=== PATIENT | female | born 1980 | race Caucasian/White ===

== ENCOUNTER 2018-11-10 16:32 | Inpatient (IN) ==
[2018-11-10] MEDS ORDERED: OXYTOCIN 30 UNITS/500 ML BAG IV PRN ×2 (16:49→20:05)
[2018-11-10] MEDS: LACTATED RINGER'S 1,000 ML IV PRN ×2 (17:00→18:00)
[2018-11-10 17:08] LABS: Hematocrit (blood only) 33.9 % (37-47); Hemoglobin 11.4 g/dL (12.0-16.0); Mean Corpuscular Volume 85.6 fL (80-100); Mean Platelet Volume 10.9 fL (7.4-10.4); Platelet Count 263 K/uL (130-400); RDW Coefficient of Variation 13.9 % (11.5-14.5); Red Blood Count 3.96 M/uL (4.2-5.4); White Blood Count 13.39 K/uL (4.8-10.8)
--- NOTE | 2018-11-10 17:08 | History & Physical Report ---
Date of Service November 10, 2018 Assessment & Plan (1) Term : 38yo at 39.5 weeks GA. Presents in active labor. 1. Fetus: cat 1 2: Labor: Active. Will AROM following epidural 3. Vitals: WNL 4. GBS Neg 5. Rh+ History of Present Illness Primary Care Provider: Danya Guzman 38yo at 39.5 weeks GA. Presents in active labor. No VB, LOF. Good FM. complicated by AMA. GBS-, RH+ Physical Exam Genitourinary: OB Exam Abdomen: + vertex and + regular contractions Manual OB Exam: + cervical dilation 6 cm, + cervical effacement 90% and + station 0 OB Exam Monitor Tracing: + category I Results & Data Vital Signs (Past 12 Hours) Vital Signs Temp Pulse Resp BP 11/10/18 16:41 76 124/74 11/10/18 16:40 37.0 C 24
[2018-11-10] MEDS ORDERED: ePHEDrine sulfate 50 MG/ML AMP ONE (17:11)
[2018-11-10] MEDS ORDERED: BUPIVACAINE 0.25% 30 ML VIAL ONE (17:11)
[2018-11-10] MEDS ORDERED: fentaNYL citrate 100 MCG/2 ML VIAL ONE (17:11)
[2018-11-10 17:12] LABS: Mean Corpuscular Hgb Conc 33.6 g/dL (32-36)
[2018-11-10] MEDS ORDERED: fentaNYL 2MCG/ML ROPIV 1.25MG/ML 100 ML BAG EPI ONE (17:12)
--- NOTE | 2018-11-10 17:38 | Anesthesiology Consultation ---
Date of Service November 10, 2018 Assessment & Plan (1) Term : Chart Review Chart Review: Acceptable Risk for Labor Epidural ASA ASA2 Proposed Anesthesia Anesthesia Type: CSE History NPO Last Intake of Fluids Comment: N/A Past Medical History Medical History No significant medical problems Physical Exam Vital Signs Last Vital Signs Temp 37.0 C 11/10/18 16:40 Pulse 76 11/10/18 16:41 Resp 24 11/10/18 16:40 BP 124/74 11/10/18 16:41 Testing Laboratory Results 11/10/18 16:58
[2018-11-10] MEDS ORDERED: HYDROCORTISONE ACETATE 25 MG SUPP PR PRN (20:05)
[2018-11-10] MEDS ORDERED: ACETAMINOPHEN 325 MG TAB PO PRN (20:05)
[2018-11-10] MEDS ORDERED: DIPHTHERIA/TETANUS/PERTUSSIS 0.5 ML SYR/VIAL IM ONE (20:05)
[2018-11-10] MEDS ORDERED: BISACODYL 10 MG SUPP PR PRN (20:05)
[2018-11-10] MEDS ORDERED: SUPERCREAM 0.870% 15 GM JAR EXT PRN (20:05)
[2018-11-10] MEDS ORDERED: BENZOCAINE 20% AER SPR 82.5 GM CAN EXT PRN (20:05)
--- NOTE | 2018-11-10 20:30 | Delivery Summary ---
DATE OF OPERATION: 11/10/2018 PROCEDURE: Normal spontaneous vaginal delivery. SURGEON: David Li MD PREOPERATIVE DIAGNOSES: 1. Single intrauterine at term. 2. Labor. POSTOPERATIVE DIAGNOSES: 1. Single intrauterine at term. 2. Labor, status post delivery. ESTIMATED BLOOD LOSS: 150 mL. DRAINS: None. FLUIDS: Continuous lactated ringer. URINE OUTPUT: Not measured. COMPLICATIONS: None. FINDINGS: Viable female infant with weight pending, Apgars of 8 and 9 at 1 and 5 minutes respectively. INDICATIONS: This patient is a 38-year-old G2, P1-0-0-1 admitted at 39 weeks 5 days gestational age in active labor. The patient received an epidural for anesthesia and underwent artificial rupture of membranes and then progressed to complete-complete +2 station, at which time she felt the urge to push. The patient pushed for over approximately 2 contractions to achieve delivery. DESCRIPTION OF PROCEDURE: The patient progressed to 10 cm dilated, 100% effaced, +2 station, pushed over intact perineum with epidural anesthesia and delivered a viable female infant with weight and Apgars as noted above. Head of the delivered in DOMONIQUE position. Nuchal cord x1 was noted which was easily reduced. Body and shoulders quickly followed. was delivered to maternal abdomen and was noted to be vigorous soon after delivery. One minute delayed cord clamping was initiated, after which the cord was double clamped and cut. Cord blood was then obtained. Attention was then turned to deliver the placenta, delivered intact, 3-vessel cord, gentle cord traction. On inspection of perineum, vagina and cervix, there were noted to be no lacerations. Sponge and instrument counts were correct at the completion of the case. Both mother and were stable in the immediate post-delivery. I attest to the content of the Intraoperative Record and any orders documented therein. Any exceptions are noted below. MTDD
[2018-11-11] MEDS: IBUPROFEN 600 MG TAB PO PRN ×2 (04:11→15:18)
[2018-11-11 06:57] LABS: Hemoglobin 10.5 g/dL (12.0-16.0)
--- NOTE | 2018-11-11 07:11 | Obstetrical Progress Note ---
Date of Service <Jaskaran Aceves MD - Last Filed: 11/11/18 07:11> November 11, 2018 Assessment & Plan <Jaskaran Aceves MD - Last Filed: 11/11/18 07:11> Day #:: 1 (38-year-old status post complicated by AMA -PPD#1 - GBS negative, Blood Type - Feels well today. Eating well, voiding well, ambulating well. - Pain well controlled with Motrin. - Routine post care - After discharge will have [address] Li.) Subjective <Jaskaran Aceves MD - Last Filed: 11/11/18 07:11> Ambulation: ambulating normally Voiding: no voiding problems Passing Gas:: No Diet Tolerance:: regular diet Lochia:: Large (heavier than a normal period but less than 1 pad an hour) Feeding Type:: breast feeding Current Pain Level(1-10): 0 (taking Motrin) Physical Exam <Jaskaran Aceves MD - Last Filed: 11/11/18 07:11> OB PE General: Alert, oriented. No acute distress. Cardiac: Regular rate and rhythm, no murmurs/rubs/gallops. Respiratory: Clear to auscultation anterior and posteriorly, no wheezes/rales/rhonchi. No increased work of breathing. Symmetrical chest rise. No respiratory distress. Abdomen: Soft, nontender, nondistended. Bowel sounds present. Uterus: Uterine fundus firm, palpable at the umbilicus. Lower Extremities: No lower extremity edema or swelling. No deep calf pain. Meghan's negative bilaterally. OB ROS Denies fever, chills, sweats Denies shortness of breath, difficulty breathing, chest pain, palpitations, chest pressure. Denies breast pain. Denies dysuria. Denies headache. Results & Data <Jaskaran Aceves MD - Last Filed: 11/11/18 07:11> Vital Signs (Past 12 Hours) Vital Signs Temp Pulse Pulse Pulse Resp BP BP 11/11/18 03:55 36.6 C 55 L 16 96/55 L 11/10/18 23:00 36.8 C 71 20 11/10/18 22:30 37.0 C 11/10/18 22:18 72 112/65 11/10/18 22:03 71 18 113/63 11/10/18 21:48 73 109/59 L 11/10/18 21:33 73 18 110/64 11/10/18 21:18 81 115/62 11/10/18 21:03 69 16 118/68 11/10/18 20:48 66 18 118/66 11/10/18 20:33 68 18 119/77 11/10/18 20:18 70 16 117/59 L 11/10/18 20:04 36.9 C 67 18 122/58 L 11/10/18 20:00 63 11/10/18 19:55 82 11/10/18 19:53 73 11/10/18 19:50 61 11/10/18 19:45 71 11/10/18 19:43 67 114/62 11/10/18 19:40 75 11/10/18 19:35 67 11/10/18 19:30 70 11/10/18 19:28 69 103/58 L 11/10/18 19:25 68 11/10/18 19:20 75 11/10/18 19:15 68 11/10/18 19:12 71 90/51 L 11/10/18 19:10 77 BP Pulse Ox 11/11/18 03:55 98 11/10/18 23:00 102/61 97 11/10/18 22:30 11/10/18 22:18 11/10/18 22:03 11/10/18 21:48 11/10/18 21:33 11/10/18 21:18 11/10/18 21:03 11/10/18 20:48 11/10/18 20:33 11/10/18 20:18 11/10/18 20:04 11/10/18 20:00 99 11/10/18 19:55 98 11/10/18 19:53 91 11/10/18 19:50 99 11/10/18 19:45 98 11/10/18 19:43 11/10/18 19:40 98 11/10/18 19:35 98 11/10/18 19:30 98 11/10/18 19:28 11/10/18 19:25 98 11/10/18 19:20 98 11/10/18 19:15 98 11/10/18 19:12 11/10/18 19:10 97 <David Li MD - Last Filed: 11/14/18 09:34> Co-Signing Physician Notes Patient evaluated and agree with the above findings and plan
[2018-11-11] MEDS: PRENATAL VITAMIN 1 TAB PO SCH (08:01)
[2018-11-11] MEDS: DOCUSATE SODIUM 100 MG CAP PO SCH ×2 (08:01→20:24)
--- NOTE | 2018-11-11 09:25 | Anesthesia Procedure Note ---
Date of Service November 11, 2018 Anesthesia Post Epidural Note Vital Signs Vital Signs: Temp Pulse Resp BP Pulse Ox 36.7 C 60 18 98/54 L 97 11/11/18 08:00 11/11/18 08:00 11/11/18 08:00 11/11/18 08:00 11/11/18 08:00 Notes Mental Status: alert / awake / arousable Nausea / Vomiting: adequately controlled Pain: adequately controlled Airway Patency, RR, SpO2: stable & adequate BP & HR: stable & adequate Hydration State: stable & adequate Neuraxial Anesthesia: was administered and sensory block is resolving Anesthetic Complications: no major complications apparent and Pt Satisfied with anesthetic care Epidural: Removed without complications and With tip intact
[2018-11-11] MEDS ORDERED: BISACODYL 5 MG TABEC PO SCH (20:00)
--- NOTE | 2018-11-12 05:35 | Obstetrical Progress Note ---
Date of Service November 12, 2018 Assessment & Plan Day #:: 2 ([38-year-old status post @ 39+5 complicated by AMA.] - PPD#2 - GBS negative, Blood Type O+ - Feels well today. Eating well, voiding well, ambulating well. - Pain well controlled. - Routine post care - After discharge will have [address] Li.) Physical Exam General: Alert, oriented. No acute distress. Cardiac: Regular rate and rhythm, no murmurs/rubs/gallops. Respiratory: Clear to auscultation anterior and posteriorly, no wheezes/rales/rhonchi. No increased work of breathing. Symmetrical chest rise. No respiratory distress. Abdomen: Soft, nontender, nondistended. Bowel sounds present. Uterus: Uterine fundus firm, palpable _cm below umbilicus. Lower Extremities: No lower extremity edema or swelling. No deep calf pain. Meghan's negative bilaterally. OB ROS Denies fever, chills, sweats Denies shortness of breath, difficulty breathing, chest pain, palpitations, chest pressure. Denies breast pain. Denies dysuria. Denies headache. Results & Data Vital Signs (Past 12 Hours) Vital Signs Temp Pulse Resp BP 11/11/18 23:05 36.4 C L 63 18 94/59 L
--- NOTE | 2018-11-12 06:35 | Obstetrical Progress Note ---
Date of Service November 12, 2018 Assessment & Plan (1) Term : (2) Normal delivery at term: stable for d/c home, f/u 6wks pp check. instructions reviewed. rh pos, ri, breast feeding. Day #:: 2 Subjective Ambulation: ambulating normally Voiding: no voiding problems Diet Tolerance:: regular diet Lochia:: Small Feeding Type:: breast feeding denies pain issues. Physical Exam Constitutional WD/WN, vitals as above Respiratory normal respiratory effort, lungs clear to auscultation Cardiovascular Rate/Rhythm: regular rate and regular rhythm Gastrointestinal (Abdomen) Inspection/Auscultation: abdomen normal to inspection Percussion/Palpation: abdomen soft fundus firm 2 cm below umbilicus Musculoskeletal nt calves Psychiatric A+Ox3, euthymic affect Results & Data Vital Signs (Past 12 Hours) Vital Signs Temp Pulse Resp BP 11/11/18 23:05 36.4 C L 63 18 94/59 L
[2018-11-12] MEDS: PRENATAL VITAMIN 1 TAB PO SCH (07:47)
[2018-11-12] MEDS: DOCUSATE SODIUM 100 MG CAP PO SCH (07:47)
== END 2018-11-12 10:25 | disposition home or self-care (01) | DRG 807 ==
LOC: OPB 16:32 → 4S1 16:33 → 4S2 22:49